=== PATIENT | female | born 1965 | race Asian ===

== ENCOUNTER 2022-08-04 11:30 | Emergency (ER) | payer MEDICAID ==
[~2022-08-04] VITALS: Ht 157.5 cm; Wt 68.2 kg
[~2022-08-04 11:30] MED LIST: PSEU120T84 PO
[2022-08-04 12:44] VITALS: BP 129/90
[2022-08-04 13:38] LABS: BASOPHILS # (AUTO) 0.1 X10'3 (0-0.2); BASOPHILS % (AUTO) 0.9 % (0-1); EOSINOPHILS # (AUTO) 0.6 X10'3 (0-0.9); EOSINOPHILS % (AUTO) 7.3 % (0-6); HEMOGLOBIN 15.4 g/dl (12.0-16.0); LYMPHOCYTES % (AUTO) 35.7 % (21-51); MEAN CORPUSCULAR HEMOGLOBIN 30.4 PG (27.0-31.0); MEAN CORPUSCULAR HGB CONC 33.5 g/dL (33.0-36.5); MEAN CORPUSCULAR VOLUME 90.6 FL (78-98); MEAN PLATELET VOLUME 7.6 FL (7.4-10.4); MONOCYTES # (AUTO) 0.6 X10'3 (0-0.9); MONOCYTES % (AUTO) 7.5 % (2-12); NEUTROPHILS # (AUTO) 4.1 X10'3 (1.8-7.7); NEUTROPHILS % (AUTO) 48.6 % (42-75); PLATELET COUNT 218 X10'3 (140-440); RED BLOOD COUNT 5.08 X10'6 (4.20-5.60); WHITE BLOOD COUNT 8.4 X10'3 (4.5-11.0)
[2022-08-04 13:51] LABS: ALANINE AMINOTRANSFERASE 35 U/L (12-78); ALBUMIN 4.1 G/DL (3.4-5.0); ALBUMIN/GLOBULIN RATIO 1.1 (1.1-1.5); ALKALINE PHOSPHATASE 119 IU/L (46-116); ANION GAP 10 (8-16); ASPARTATE AMINO TRANSFERASE 26 U/L (10-37); BILIRUBIN,TOTAL 0.7 MG/DL (0.1-1.0); BLOOD UREA NITROGEN 17 MG/DL (7-18); BUN/CREATININE RATIO 26.6 (10.0-20.0); CHLORIDE 102 MMOL/L (99-107); CREATININE 0.64 MG/DL (0.40-0.90); GLUCOSE 134 MG/DL (70-104); POTASSIUM 3.8 MMOL/L (3.5-5.1); SODIUM 137 MMOL/L (135-145); TOTAL CARBON DIOXIDE 25.5 MMOL/L (24-32); TOTAL PROTEIN 7.8 G/DL (6.4-8.2); eGFR > 90 ML/MIN
[2022-08-04 13:59] LABS: MAGNESIUM 2.2 MG/DL (1.5-2.4)
[2022-08-04] MEDS ORDERED: AZIT250T2 PO (16:29)
== END 2022-08-04 17:02 | disposition home or self-care (01) ==
LOC: ER 11:30
DX: J20.9 Acute bronchitis, unspecified (principal); I10 Essential (primary) hypertension; K21.9 Gastro-esophageal reflux disease without esophagitis; E11.9 Type 2 diabetes mellitus without complications; F32.A Depression, unspecified; Z86.14 Personal history of Methicillin resistant Staphylococcus aureus infection; Z90.49 Acquired absence of other specified parts of digestive tract; Z79.899 Other long term (current) drug therapy
CPT/HCPCS: 36415; 71046; 80053; 83605; 83735; 83880; 84484; 85025; 87040; 93005; 99285

== ENCOUNTER 2023-02-26 09:27 | Inpatient (IN) | payer MEDICAID ==
[~2023-02-26] VITALS: Ht 160 cm; Wt 65.8 kg
[2023-02-26 10:23] LABS: URINE HCG NEGATIVE (NEG)
[2023-02-26 10:26] LABS: BILIRUBIN,URINE NEGATIVE (Neg); CLARITY,URINE CLEAR (Clear); COLOR,URINE YELLOW (Yellow); GLUCOSE, URINE NEGATIVE (Neg); KETONES,URINE NEGATIVE (Neg); LEUKOCYTE ESTERASE ,URINE NEGATIVE (Neg); NITRITES, URINE NEGATIVE (Neg); OCCULT BLOOD,URINE TRACE-INTACT (Neg); PROTEIN,URINE 100 mg/dl (Neg); UROBILINOGEN,URINE 0.2 E.U/dL (0.2-1.0)
[2023-02-26 10:31] LABS: UA COLLECTION TYPE CLN CATCH MIDSTREAM
[2023-02-26 10:33] LABS: SQUAMOUS EPITHELIAL CELL,UR MODERATE /LPF (FEW)
[2023-02-26 10:34] LABS: BACTERIA,URINE NONE SEEN /HPF (Neg); WBC,URINE 0-4 /HPF (0-4)
[2023-02-26 11:26] LABS: HEMOGLOBIN 14.4 g/dl (12.0-16.0); PLATELET COUNT 200 X10'3 (140-440); RED CELL DISTRIBUTION WIDTH 13.1 % (11.5-14.5)
[2023-02-26 11:27] LABS: BASOPHILS % (AUTO) 0.2 % (0-1); EOSINOPHILS % (AUTO) 0.1 % (0-6); HEMATOCRIT 42.9 % (35.0-45.0); LYMPHOCYTES # (AUTO) 1.5 X10'3 (1.1-4.8); LYMPHOCYTES % (AUTO) 12.8 % (21-51); MEAN CORPUSCULAR HEMOGLOBIN 29.9 PG (27.0-31.0); MEAN CORPUSCULAR HGB CONC 33.6 g/dL (33.0-36.5); MEAN CORPUSCULAR VOLUME 89.1 FL (78-98); MEAN PLATELET VOLUME 7.3 FL (7.4-10.4); MONOCYTES # (AUTO) 0.5 X10'3 (0-0.9); MONOCYTES % (AUTO) 4.3 % (2-12); NEUTROPHILS % (AUTO) 82.6 % (42-75); RED BLOOD COUNT 4.82 X10'6 (4.20-5.60); WHITE BLOOD COUNT 12.1 X10'3 (4.5-11.0)
[2023-02-26] MEDS ORDERED: morphine 4 MG/ML inj SYRINge IV ONE (11:35)
[2023-02-26] MEDS ORDERED: metoprolol tartrate 1mg/ml inj IV ONE (11:40)
[2023-02-26] MEDS ORDERED: ondansetron/PF 4mg/2ml inj IV ONE (11:40)
[2023-02-26 11:41] LABS: ALANINE AMINOTRANSFERASE 35 U/L (12-78); ALBUMIN/GLOBULIN RATIO 1.2 (1.1-1.5); ALKALINE PHOSPHATASE 114 IU/L (46-116); ANION GAP 10 (8-16); ASPARTATE AMINO TRANSFERASE 26 U/L (10-37); BILIRUBIN,TOTAL 0.4 MG/DL (0.1-1.0); BLOOD UREA NITROGEN 12 MG/DL (7-18); BUN/CREATININE RATIO 18.5 (10.0-20.0); CALCIUM 8.7 MG/DL (8.5-10.1); CHLORIDE 98 MMOL/L (99-107); CREATININE 0.65 MG/DL (0.40-0.90); GLUCOSE 134 MG/DL (70-104); LIPASE 26 U/L (16-77); POTASSIUM 3.3 MMOL/L (3.5-5.1); SODIUM 134 MMOL/L (135-145); TOTAL CARBON DIOXIDE 25.8 MMOL/L (24-32); TOTAL PROTEIN 7.4 G/DL (6.4-8.2); eCRCL 79 ML/MIN; eGFR > 90 ML/MIN
[2023-02-26] MEDS ORDERED: iohexol 350MG/ML 100ml bottle IV ONE (11:52)
[2023-02-26 12:13] LABS: PRO BRAIN NATRIURETIC PEPTIDE 243 PG/ML (0-125)
[2023-02-26] MEDS: metoprolol tartrate 1mg/ml inj IV ONE ×2 (12:46→12:48)
[2023-02-26] MEDS ORDERED: famotidine 20mg tablet PO ONE (13:00)
[2023-02-26] MEDS ORDERED: hydrALAZINE 20mg/ml inj. IV ONE (13:00)
[2023-02-26] MEDS ORDERED: mag hydrox/Alum hydrox/simeth 30ml oral suspension PO ONE (13:00)
[2023-02-26] MEDS: LIDOcaine Viscous 15ml cup MM PRN ×2 (13:11→13:19)
[2023-02-26] MEDS: losartan 50mg tablet PO SCH (13:23)
[2023-02-26] MEDS ORDERED: piperacillin/tazo 3.375gm/50ml 50 ML IV ONE (13:25)
[2023-02-26] MEDS ORDERED: normal saline 1000ML IV soln IVB ONE (13:25)
[2023-02-26] MEDS ORDERED: morphine 2 MG/ML inj. syringe IV PRN (13:25)
--- NOTE | 2023-02-26 13:50 | NUR ---
PT TO [facility] 3 FROM [facility]. RECEIVED REPORT FROM LUIS FERNANDO DAMON. PT A/O X4 WITH FAMILY AT .
--- NOTE | 2023-02-26 14:04 | NUR ---
DR Alexander SOTO AT BS FOR CONSULT WITH PT R/T SIRG. STATES HE WANTS THE BS US CANCELED.
[2023-02-26] MEDS ORDERED: insulin Lispro (HumaLOG) vial - multi-dose SQ SCH (14:40)
[2023-02-26] MEDS ORDERED: magnesium 4gm in 100ml NS 100 ML IV PRN (14:40)
[2023-02-26] MEDS ORDERED: potassium Cl 40MEQ/1/2NS 520ml 520 ML IV PRN (14:40)
[2023-02-26] MEDS ORDERED: HYDROmorphone/PF 0.2 MG/ML SYRINGE IV PRN (14:40)
[2023-02-26] MEDS ORDERED: magnesium hydroxide 30ml (MOM) UD suspension PO PRN (14:40)
[2023-02-26] MEDS ORDERED: potassium Cl 20 mEq SR tablet PO PRN ×2 (14:40)
[2023-02-26] MEDS ORDERED: magnesium 2GM in 50ml NS 50 ML IV PRN (14:40)
[2023-02-26] MEDS ORDERED: mag hydrox/Alum hydrox/simeth 30ml oral suspension PO PRN (14:40)
[2023-02-26] MEDS ORDERED: niCARDipine-NS 40mg/200ml IVPB 200 ML IV SCH ×2 (14:40→14:45)
[2023-02-26] MEDS ORDERED: glucagon, human recombinant 1mg kit SUBCUT PRN (14:40)
[2023-02-26] MEDS ORDERED: acetaminophen 325mg tablet PO PRN (14:40)
[2023-02-26] MEDS ORDERED: MESSAGE TO PHARMACY PO ONE (14:40)
[2023-02-26] MEDS ORDERED: dextrose 50%-water 50ml dispensing syringe IV PRN ×2 (14:40)
[2023-02-26] MEDS ORDERED: ondansetron/PF 4mg/2ml inj IV PRN (14:40)
[2023-02-26] MEDS ORDERED: DEXTROSE 15 GM of carb/4 tabs (each vial/BOTTLE has 4 tablets) PO PRN ×2 (14:40)
[2023-02-26] MEDS: normal saline 1000ml 1,000 ML IV SCH ×2 (15:17→23:15)
[2023-02-26] MEDS: HYDROmorphone inj. 0.5 MG/0.5 ML DISP.SYRIN IV PRN ×2 (15:40→20:46)
[2023-02-26] MEDS ORDERED: piperacillin/tazo 4.5gm/100ml 100 ML IV SCH (16:00)
--- NOTE | 2023-02-26 16:19 | NUR ---
SPOKE WITH DR BENITO R/T PT'S DROP IN BP. MD ORDERED CHIN HE STOPPED AND THAT HE'LL WRITE THE ORDER.
[2023-02-26] MEDS: hydrALAZINE 20mg/ml inj. IV PRN (18:49)
--- NOTE | 2023-02-26 19:12 | NUR ---
Patient resting in bed with family at bedside. Denies needs or concerns at this time. Call light within reach.
[2023-02-26] MEDS: K and/or MAG REPLACEMENT MC SCH (19:24)
[2023-02-26] MEDS: docusate sod 100mg capsule PO SCH (19:59)
[2023-02-26] MEDS: insulin glargine (Lantus) pen - multi-dose SQ SCH (20:26)
--- NOTE | 2023-02-26 20:26 | NUR ---
Patient's family does not want patient having insulin, verbalized understanding. They state they are comfortable with her blood sugars being checked and having the discussion of insulin in the morning, but at this time they refused insulin. Denies further needs, call light within reach.
[2023-02-26] MEDS ORDERED: ATOR20TA66 PO (20:50)
[2023-02-26] MEDS ORDERED: METO-395 PO (20:50)
[2023-02-26] MEDS ORDERED: AMLO10TA13 PO (20:50)
[2023-02-26] MEDS ORDERED: LORA10TA7 PO (20:50)
[2023-02-26] MEDS ORDERED: LOSA1TAB39 PO (20:50)
[2023-02-26] MEDS: piperacillin/tazo 4.5gm/100ml 100 ML IV SCH (21:58)
--- NOTE | 2023-02-26 22:33 | NUR ---
Patient placed in hospital bed for comfort. Family at bedside, denies further needs at this time, call light within reach.
--- NOTE | 2023-02-26 23:55 | NUR ---
Patient resting in bed with eyes closed,respirations even and unlabored, no acute distress noted at this time, call light within reach.
[2023-02-27] VITALS (16 sets, daily range): BP systolic 129–186; BP diastolic 80–108; PULSE 63–82; RESP 12–20; TEMP 97.8–98.7; O2SAT 91–100
[2023-02-27] MEDS: hydrALAZINE 20mg/ml inj. IV PRN (01:06)
[2023-02-27] MEDS: HYDROmorphone inj. 0.5 MG/0.5 ML DISP.SYRIN IV PRN ×2 (01:12→21:05)
--- NOTE | 2023-02-27 01:15 | NUR ---
Patient communications intern light states she is having pain in her abdomen and back. Medication provided per order. Denies further needs at this time, call light within reach.
[2023-02-27 02:51] LABS: BASOPHILS # (AUTO) 0.1 X10'3 (0-0.2); BASOPHILS % (AUTO) 0.4 % (0-1); EOSINOPHILS % (AUTO) 0.1 % (0-6); HEMATOCRIT 42.5 % (35.0-45.0); HEMOGLOBIN 14.2 g/dl (12.0-16.0); LYMPHOCYTES # (AUTO) 1.4 X10'3 (1.1-4.8); LYMPHOCYTES % (AUTO) 9.5 % (21-51); MEAN CORPUSCULAR HEMOGLOBIN 29.7 PG (27.0-31.0); MEAN CORPUSCULAR HGB CONC 33.3 g/dL (33.0-36.5); MEAN PLATELET VOLUME 7.6 FL (7.4-10.4); MONOCYTES # (AUTO) 0.9 X10'3 (0-0.9); MONOCYTES % (AUTO) 6.4 % (2-12); NEUTROPHILS % (AUTO) 83.6 % (42-75); PLATELET COUNT 204 X10'3 (140-440); RED BLOOD COUNT 4.77 X10'6 (4.20-5.60); RED CELL DISTRIBUTION WIDTH 13.4 % (11.5-14.5); WHITE BLOOD COUNT 14.4 X10'3 (4.5-11.0)
[2023-02-27 03:03] LABS: ALANINE AMINOTRANSFERASE 103 U/L (12-78); ALBUMIN 3.3 G/DL (3.4-5.0); ALKALINE PHOSPHATASE 99 IU/L (46-116); ANION GAP 8 (8-16); ASPARTATE AMINO TRANSFERASE 81 U/L (10-37); BILIRUBIN,TOTAL 1.1 MG/DL (0.1-1.0); BLOOD UREA NITROGEN 8 MG/DL (7-18); BUN/CREATININE RATIO 12.3 (10.0-20.0); CHLORIDE 98 MMOL/L (99-107); CREATININE 0.65 MG/DL (0.40-0.90); GLUCOSE 136 MG/DL (70-104); MAGNESIUM 1.7 MG/DL (1.5-2.4); POTASSIUM 3.6 MMOL/L (3.5-5.1); SODIUM 132 MMOL/L (135-145); TOTAL CARBON DIOXIDE 25.7 MMOL/L (24-32); TOTAL PROTEIN 6.5 G/DL (6.4-8.2); eCRCL 79 ML/MIN; eGFR > 90 ML/MIN
[2023-02-27] MEDS: piperacillin/tazo 4.5gm/100ml 100 ML IV SCH ×3 (05:20→17:25)
[2023-02-27] MEDS: K and/or MAG REPLACEMENT MC SCH ×2 (08:00→20:00)
--- NOTE | 2023-02-27 08:17 | NUR ---
sent to bree: [id number] [facility]: Pt's family states that pt is consenting and wants her surgery tomorrow. She is still NPO now. any further orders? thank you. Alexus DAMON [id number]
--- NOTE | 2023-02-27 08:19 | NUR ---
Dr. Reyes will call Dr. Patricio to see when pt can have her surgery.
[2023-02-27] MEDS: normal saline 1000ml 1,000 ML IV SCH ×2 (10:13→20:40)
[2023-02-27] MEDS: losartan 50mg tablet PO SCH (10:27)
[2023-02-27] MEDS: docusate sod 100mg capsule PO SCH ×2 (10:27→20:00)
[2023-02-27] MEDS ORDERED: losartan 50mg tablet PO SCH (13:27)
--- NOTE | 2023-02-27 16:15 | NUR ---
pre-op is here to black pickler patient for surgery. she is having a laparoscopic cholecystectomy. Pt was transported via her bed. pt's daughter is at the bedside and will translate for patient with the surgical team.
[2023-02-27] MEDS ORDERED: BUPIVAcaine/PF 2.5mg/ml (0.25%) 10ml vial ONE (16:51)
[2023-02-27] MEDS ORDERED: sevoflurane 250ml liquid IH ONE (17:12)
[2023-02-27] MEDS ORDERED: LIDOcaine 2% (20mg/ml) 5ml vial ONE (17:12)
[2023-02-27] MEDS ORDERED: midazolam 1 mg/ML 2ml injection ONE (17:16)
[2023-02-27] MEDS ORDERED: fentaNYL/PF 50MCG/1 ML 2ML syringe ONE (17:16)
[2023-02-27] MEDS ORDERED: propofol inj 20 ML IV ONE (17:20)
[2023-02-27] MEDS ORDERED: ondansetron/PF 4mg/2ml inj IV PRN (17:45)
[2023-02-27] MEDS ORDERED: morphine 4 MG/ML inj SYRINge IV PRN (17:45)
[2023-02-27] MEDS ORDERED: ringers solution, lacted 1,000 ML IV SCH (17:45)
[2023-02-27] MEDS ORDERED: proCHLORperazine 10 MG/2 ml inj IV PRN (17:45)
[2023-02-27] MEDS ORDERED: morphine 2 MG/ML inj. syringe IV PRN (17:45)
[2023-02-27] MEDS ORDERED: meperidine/PF 25mg/ml syringe IV PRN ×3 (17:45)
[2023-02-27] MEDS ORDERED: BUPIVAcaine/PF 2.5mg/ml (0.25%) 10ml vial IJ ONE (18:16)
[2023-02-27] MEDS ORDERED: rocuronium 10mg/ml inj IV ONE (18:23)
[2023-02-27] MEDS ORDERED: dexamethasone sod phosphate 4mg/ml inj. ONE (18:24)
[2023-02-27] MEDS ORDERED: ondansetron/PF 4mg/2ml inj ONE (18:24)
[2023-02-27] MEDS ORDERED: sugammadex 200mg/2ml injection IV ONE (18:25)
--- NOTE | 2023-02-27 18:36 | NUR ---
Received from OR via HOSPITAL BED , accompanied by Anesthesiologist and report given by RITESH Anesthesiologist. PATIENT WAKING UP, NO S/S OF PAIN, V/S WNL, SCD ON , PIV 20G LEFT AC, ISLAND DRESSING LAPS SITES CLOSED C/D/I TO ABDOMEN. Addendum: 02/27/23 at 1902 by Ernesto Epperson RN Amended: Links added.
[2023-02-27] MEDS ORDERED: hydrALAZINE 20mg/ml inj. IV PRN (18:40)
[2023-02-27] MEDS ORDERED: labetalol 20mg/4ml (5mg/ml) syringe IV PRN (18:40)
--- NOTE | 2023-02-27 19:26 | NUR ---
PATIENT HAS MET ALL CRITERIA FOR TRANSFER TO ORTHO FLOOR. VSS. DRESSINGS INTACT. BED LOW, CALL LIGHT PRESENT AND 2 RAILS UP. RN PRESENT TO ACCEPT CARE OF PATIENT AND REPORT HAS BEEN CALLED. ALL QUESTIONS ANSWERED TO ACCEPTING RN. Addendum: 02/27/23 at 1931 by Ernesto Epperson RN Amended: Links added.
[2023-02-27] MEDS ORDERED: enoxaparin 40mg/0.4ml syringe SUBCUT SCH (20:00)
[2023-02-27] MEDS: insulin glargine (Lantus) pen - multi-dose SQ SCH (21:00)
[2023-02-28 02:00] VITALS: BP 151/96; PULSE 75; RESP 19; TEMP 97.8; O2SAT 95
--- NOTE | 2023-02-28 07:00 | NUR ---
This RN has reviewed and agrees w/the WAD PRINTING MACHINE OPERATOR's physical assessment f/this patient.
[2023-02-28 07:20] VITALS: BP 171/103; PULSE 75; RESP 16; TEMP 97.3; O2SAT 92
[2023-02-28 07:29] LABS: BASOPHILS % (AUTO) 0 % (0-1); EOSINOPHILS % (AUTO) 0 % (0-6); HEMATOCRIT 40.6 % (35.0-45.0); HEMOGLOBIN 13.5 g/dl (12.0-16.0); LYMPHOCYTES # (AUTO) 0.9 X10'3 (1.1-4.8); LYMPHOCYTES % (AUTO) 9.9 % (21-51); MEAN CORPUSCULAR HEMOGLOBIN 29.8 PG (27.0-31.0); MEAN CORPUSCULAR HGB CONC 33.2 g/dL (33.0-36.5); MEAN PLATELET VOLUME 7.5 FL (7.4-10.4); MONOCYTES # (AUTO) 0.5 X10'3 (0-0.9); MONOCYTES % (AUTO) 5.7 % (2-12); NEUTROPHILS # (AUTO) 7.8 X10'3 (1.8-7.7); NEUTROPHILS % (AUTO) 84.4 % (42-75); PLATELET COUNT 173 X10'3 (140-440); RED BLOOD COUNT 4.51 X10'6 (4.20-5.60); RED CELL DISTRIBUTION WIDTH 13.3 % (11.5-14.5); WHITE BLOOD COUNT 9.2 X10'3 (4.5-11.0)
[2023-02-28] MEDS: HYDROmorphone inj. 0.5 MG/0.5 ML DISP.SYRIN IV PRN (07:39)
[2023-02-28] MEDS: piperacillin/tazo 4.5gm/100ml 100 ML IV SCH ×2 (07:39→14:00)
[2023-02-28 07:43] LABS: ALANINE AMINOTRANSFERASE 191 U/L (12-78); ALBUMIN 2.6 G/DL (3.4-5.0); ALBUMIN/GLOBULIN RATIO 0.8 (1.1-1.5); ALKALINE PHOSPHATASE 90 IU/L (46-116); ANION GAP 7 (8-16); ASPARTATE AMINO TRANSFERASE 163 U/L (10-37); BILIRUBIN,TOTAL 0.5 MG/DL (0.1-1.0); BLOOD UREA NITROGEN 12 MG/DL (7-18); BUN/CREATININE RATIO 18.8 (10.0-20.0); CHLORIDE 107 MMOL/L (99-107); CREATININE 0.64 MG/DL (0.40-0.90); GLUCOSE 124 MG/DL (70-104); POTASSIUM 3.6 MMOL/L (3.5-5.1); SODIUM 139 MMOL/L (135-145); TOTAL PROTEIN 5.9 G/DL (6.4-8.2); eCRCL 80 ML/MIN; eGFR > 90 ML/MIN
[2023-02-28] MEDS: normal saline 1000ml 1,000 ML IV SCH (07:43)
[2023-02-28] MEDS: docusate sod 100mg capsule PO SCH (07:52)
[2023-02-28] MEDS: K and/or MAG REPLACEMENT MC SCH (08:00)
[2023-02-28] MEDS ORDERED: atorvastatin 20mg tablet PO SCH (08:00)
[2023-02-28] MEDS ORDERED: metoprolol succinate 25mg (24-HOUR) SR. Tablet PO SCH (08:00)
[2023-02-28] MEDS ORDERED: loratadine 10mg tablet PO SCH (08:00)
[2023-02-28] MEDS ORDERED: amLODIPine 5mg tablet PO SCH (08:00)
[2023-02-28] MEDS ORDERED: HYDROchlorothiazide 25mg tablet PO SCH (08:00)
[2023-02-28 08:31] VITALS: RESP 16
[2023-02-28] MEDS ORDERED: AMOX-580 PO (10:09)
[2023-02-28] MEDS ORDERED: HYDR-3972 PO (10:09)
[2023-02-28 12:21] VITALS: BP 137/95; PULSE 70; RESP 14; TEMP 98; O2SAT 96
--- NOTE | 2023-02-28 13:24 | NUR ---
Patient discharge on paper. Education completed. Patient's daughter will be picking up new medications at the pharmacy. Patient will follow up with Dr. Patricio on Mar 12 at 0930 in the office, family aware. Patient IV taken out. Patient wants to take a shower before leaving hospital.
--- NOTE | 2023-02-28 15:19 | NUR ---
Patient discharged. Island Dressing changed, education completed with patients daughter on how to change
== END 2023-02-28 16:30 | disposition home or self-care (01) | DRG 263 ==
LOC: ER 09:27 → ED HOLD 14:43 → PCU 3S 02-27 08:04 → SUR 3N 02-27 12:33 → PCU 3S 02-27 12:34
PROVIDERS: ADMIT Family Medicine; ATTEND Family Medicine
PROC: B32T1ZZ Computerized Tomography (CT Scan) of Left Pulmonary Artery using Low Osmolar Contrast (ICD-10-PCS; 2023-02-26)
PROC: B3201ZZ Computerized Tomography (CT Scan) of Thoracic Aorta using Low Osmolar Contrast (ICD-10-PCS; 2023-02-26)
PROC: B32S1ZZ Computerized Tomography (CT Scan) of Right Pulmonary Artery using Low Osmolar Contrast (ICD-10-PCS; 2023-02-26)
PROC: 0FT44ZZ Resection of Gallbladder, Percutaneous Endoscopic Approach (ICD-10-PCS; principal; 2023-02-27 17:12)
DX: K80.00 Calculus of gallbladder with acute cholecystitis without obstruction (principal); E11.42 Type 2 diabetes mellitus with diabetic polyneuropathy; F32.A Depression, unspecified; I10 Essential (primary) hypertension; K21.9 Gastro-esophageal reflux disease without esophagitis; E87.6 Hypokalemia; I16.1 Hypertensive emergency; I77.810 Thoracic aortic ectasia; Z90.710 Acquired absence of both cervix and uterus; Z63.4 Disappearance and death of family member; Z83.79 Family history of other diseases of the digestive system
CPT/HCPCS: 36415; 71045; 71275; 74174; 80053; 81001; 81025; 82948; 83036; 83605; 83690; 83735; 83880; 84145; 84484; 85025; 87040; 87081; 99285; A4215; A4615; A4618; A6212; A6402; A7000; G0378; J0360; J1100; J1170; J1650; J1815; J2175; J2250; J2270; J2405; J2543; J2704; J3010; J3480; J3490; J7030; J7120; Q9967

== ENCOUNTER 2023-08-10 08:13 | Emergency (ER) | payer MEDICAID ==
[~2023-08-10] VITALS: Ht 162.6 cm; Wt 69.5 kg
[~2023-08-10 08:13] MED LIST changes: +AMLO10TA13 PO; +AMOX-580 PO; +ATOR20TA66 PO; +HYDR-3972 PO; +LORA10TA7 PO; +LOSA1TAB39 PO; +METO-395 PO
[2023-08-10 08:16] VITALS: TEMP 97.8
[2023-08-10] MEDS ORDERED: BUPIVAcaine/PF 2.5 mg/ml (0.25%) 30ml vial IJ ONE (08:40)
[2023-08-10] MEDS: LIDOcaine 1% 30ml preserv. free vial IJ ONE (08:40)
[2023-08-10] MEDS: HYDROcodone/acetaminophen 10/325mg tab PO ONE (08:54)
[2023-08-10] MEDS: normal saline 1000ML IV soln IVB ONE (08:54)
[2023-08-10] MEDS: morphine 4 MG/ML inj SYRINge IV ONE (08:54)
[2023-08-10 09:04] LABS: BASOPHILS % (AUTO) 0.5 % (0-1); EOSINOPHILS # (AUTO) 0.1 X10'3 (0-0.9); EOSINOPHILS % (AUTO) 1.2 % (0-6); HEMATOCRIT 44.6 % (35.0-45.0); LYMPHOCYTES # (AUTO) 2.1 X10'3 (1.1-4.8); LYMPHOCYTES % (AUTO) 29.6 % (21-51); MEAN CORPUSCULAR HGB CONC 33.6 g/dL (33.0-36.5); MEAN CORPUSCULAR VOLUME 89.5 FL (78-98); MEAN PLATELET VOLUME 7.4 FL (7.4-10.4); MONOCYTES # (AUTO) 0.8 X10'3 (0-0.9); MONOCYTES % (AUTO) 11.3 % (2-12); NEUTROPHILS # (AUTO) 4.2 X10'3 (1.8-7.7); NEUTROPHILS % (AUTO) 57.4 % (42-75); PLATELET COUNT 202 X10'3 (140-440); RED BLOOD COUNT 4.99 X10'6 (4.20-5.60); RED CELL DISTRIBUTION WIDTH 12.8 % (11.5-14.5); WHITE BLOOD COUNT 7.2 X10'3 (4.5-11.0)
[2023-08-10] MEDS: BUPIVAcaine/PF 2.5mg/ml (0.25%) 10ml vial IJ ONE (09:05)
[2023-08-10 09:15] LABS: ANION GAP 12 (8-16); BLOOD UREA NITROGEN 16 MG/DL (7-18); CALCIUM 8.7 MG/DL (8.5-10.1); CHLORIDE 106 MMOL/L (99-107); CREATININE 0.64 MG/DL (0.40-0.90); GLUCOSE 117 MG/DL (70-104); POTASSIUM 3.7 MMOL/L (3.5-5.1); SODIUM 143 MMOL/L (135-145); TOTAL CARBON DIOXIDE 25.5 MMOL/L (24-32); eCRCL 84 ML/MIN; eGFR > 90 ML/MIN
[2023-08-10] MEDS: ketamine 50 mg/ml 10ml vial IV ONE (10:19)
[2023-08-10] MEDS: HYDROmorphone 1 mg/ml syringe IV ONE (11:04)
[2023-08-10] MEDS: ondansetron/PF 4mg/2ml inj IV ONE (11:58)
[2023-08-10] MEDS ORDERED: HYDR-3965 PO (12:00)
[2023-08-10 12:09] VITALS: BP 167/85; PULSE 74; RESP 16; O2SAT 98
[2023-08-10] MEDS ORDERED: ONDA-243 PO (12:17)
== END 2023-08-10 12:21 | disposition home or self-care (01) ==
LOC: ER 08:14
DX: S52.592A Other fractures of lower end of left radius, initial encounter for closed fracture (principal); I10 Essential (primary) hypertension; K21.9 Gastro-esophageal reflux disease without esophagitis; E11.9 Type 2 diabetes mellitus without complications; F32.A Depression, unspecified; Z90.710 Acquired absence of both cervix and uterus; W18.39XA Other fall on same level, initial encounter; Y93.89 Activity, other specified; Y92.89 Other specified places as the place of occurrence of the external cause; Y99.8 Other external cause status
CPT/HCPCS: 25605; 36415; 73110; 80048; 85025; 96361; 96374; 96375; 99152; 99285; J1170; J2270; J2405; J3490; J7030; 94760; 99284; A4565; A4620